=== PATIENT | male | born 1990 | race African-American/Black ===

== ENCOUNTER 2020-07-14 20:50 | Emergency (ER) | payer OTHER ==
[~2020-07-14] VITALS: Ht 172.7 cm; Wt 90.7 kg
[2020-07-14 20:57] VITALS: BP 145/85
[2020-07-14] MEDS ORDERED: OXYCONTIN10 M1 PO (21:02)
== END 2020-07-14 21:00 | disposition home or self-care (01) ==
LOC: ER 20:50
DX: K94.03 Colostomy malfunction (principal); Z79.899 Other long term (current) drug therapy; Z59.0 Homelessness